=== PATIENT | male | born 1995 | race Caucasian/White ===

== ENCOUNTER 2018-09-24 19:36 | Emergency (ER) | payer OTHER ==
[~2018-09-24] VITALS: Ht 172.7 cm; Wt 70.0 kg
[2018-09-24 19:51] VITALS: BP 124/79
== END 2018-09-24 21:43 | disposition home or self-care (01) ==
LOC: ED 21:30
DX: H61.22 Impacted cerumen, left ear (principal)
CPT/HCPCS: 99282